=== PATIENT | male | born 1965 | race Two or more races ===

== ENCOUNTER 2018-08-21 10:11 | Outpatient (CLI) | payer OTHER ==
[~2018-08-21] VITALS: Ht 170.2 cm; Wt 81.6 kg
== END 2018-08-21 10:25 | disposition home or self-care (01) ==
LOC: OFIC 805 10:11
DX: K21.9 Gastro-esophageal reflux disease without esophagitis (principal); R09.81 Nasal congestion; H90.3 Sensorineural hearing loss, bilateral

== ENCOUNTER 2022-07-19 13:50 | Outpatient (CLI) | payer OTHER | END 2022-07-19 14:00 | disposition home or self-care (01) | LOC: PPH VACUNA 13:50 | PROVIDERS: ATTEND Emergency Medicine Pediatric Emergency Medicine | DX: Z23 Encounter for immunization (principal) ==